=== PATIENT | female | born 1970 | race Two or more races ===

== ENCOUNTER 2018-01-15 05:33 | Emergency (ER) | payer OTHER ==
[~2018-01-15] VITALS: Ht 160 cm; Wt 57.2 kg
[2018-01-15] MEDS ORDERED: SYNTHROID88 MCG (05:57)
== END 2018-01-15 16:01 | disposition home or self-care (01) ==
LOC: ER 05:33
DX: N88.8 Other specified noninflammatory disorders of cervix uteri (principal)

== ENCOUNTER 2023-12-14 10:35 | Outpatient (CLI) | payer OTHER ==
[~2023-12-14 10:35] MED LIST: SYNTHROID88 MCG
== END 2023-12-14 10:43 | disposition home or self-care (01) ==
LOC: SONOGRAMA 10:35
PROVIDERS: ATTEND Surgery
DX: R22.1 Localized swelling, mass and lump, neck (principal)

== ENCOUNTER 2024-01-06 10:58 | Outpatient (CLI) | payer OTHER ==
[2024-01-06] MEDS ORDERED: SYNTHROID50 MCG PO (14:55)
[2024-01-06] MEDS ORDERED: COZAAR50 MG PO (14:55)
[2024-01-06] MEDS ORDERED: CRESTOR (14:56)
== END 2024-01-06 10:59 | disposition home or self-care (01) ==
LOC: SONOGRAMA 10:58
PROVIDERS: ATTEND Pathology Anatomic Pathology & Clinical Pathology
DX: R59.0 Localized enlarged lymph nodes (principal)

== ENCOUNTER 2024-01-07 06:25 | Day surgery (SDC) | payer OTHER ==
[~2024-01-07 06:25] MED LIST changes: +COZAAR50 MG PO; +CRESTOR; +SYNTHROID50 MCG PO
[2024-01-07] MEDS ORDERED: GENTAMICIN SULFATE 40 MG/ML VIAL ONE (10:03)
[2024-01-07] MEDS ORDERED: POVIDONE-IODINE SCRUB 118 ML BOTT TOP ONE ×3 (10:04→15:00)
[2024-01-07] MEDS ORDERED: CEFAZOLIN SODIUM 1,000 MG VIAL ONE (10:04)
[2024-01-07] MEDS ORDERED: POVIDONE-IODINE 118 ML BOTT TOP ONE ×3 (10:04→15:00)
[2024-01-07] MEDS ORDERED: CLINDAMYCIN PHOSPHATE 150 MG/ML (900mg) ONE (10:53)
[2024-01-07] MEDS ORDERED: EPINEPHRINE HCL/PF 1 MG/ML AMPUL ONE ×2 (11:10→12:01)
[2024-01-07] MEDS ORDERED: VANCOMYCIN HCL 1,000 MG VIAL ONE (11:11)
[2024-01-07] MEDS ORDERED: NITROGLYCERIN 1 INCH OINT..GM. TD ONE (13:49)
[2024-01-07] MEDS ORDERED: VANCOMYCIN HCL 500 MG VIAL IV ONE (15:00)
[2024-01-07] MEDS ORDERED: EPINEPHRINE HCL/PF 1 MG/ML AMPUL IM ONE (15:00)
[2024-01-07] MEDS ORDERED: CLINDAMYCIN PHOSPHATE 150 MG/ML (900mg) IV SCH (15:00)
[2024-01-07] MEDS ORDERED: CEFAZOLIN SODIUM 1,000 MG VIAL IV ONE (15:00)
[2024-01-10] MEDS ORDERED: GENTAMICIN SULFATE/PF 10 MG/ML VIAL IJ ONE (15:00)
== END 2024-01-07 17:20 | disposition home or self-care (01) ==
LOC: CIR.AMB 06:25
PROVIDERS: ATTEND Surgery
DX: C50.411 Malignant neoplasm of upper-outer quadrant of right female breast (principal); R59.0 Localized enlarged lymph nodes; N62 Hypertrophy of breast; N64.81 Ptosis of breast; E78.5 Hyperlipidemia, unspecified; I10 Essential (primary) hypertension; E03.9 Hypothyroidism, unspecified; Z20.822 Contact with and (suspected) exposure to COVID-19